=== PATIENT | female | born 2000 | race African-American/Black ===

== ENCOUNTER 2021-03-17 22:36 | Emergency (ER) | payer SELFPAY ==
[2021-03-18] MEDS ORDERED: ACETAMINOPHEN 325 MG TAB PO ONE (01:09)
[2021-03-18 01:10] VITALS: BP 139/89
[2021-03-18 01:45] LABS: Basophils # (Auto) 0.1 K/mm3 (0.0-0.1); Basophils % (Auto) 1.1 % (0.0-1.8); Eosinophils # (Auto) 0.3 K/mm3 (0.0-0.4); Eosinophils % (Auto) 2.4 % (0.0-4.3); Hematocrit 37.4 % (30.3-42.9); Hemoglobin 13.2 gm/dl (10.1-14.3); Lymphocytes # (Auto) 4.3 K/mm3 (1.2-5.4); Lymphocytes % (Auto) 40.4 % (13.4-35.0); Mean Corpuscular HGB Conc 35 % (30-34); Mean Corpuscular Volume 90 fl (79-97); Monocytes # (Auto) 0.5 K/mm3 (0.0-0.8); Monocytes % (Auto) 4.9 % (0.0-7.3); Platelet Count 299 K/mm3 (140-440); Red Blood Count 4.17 M/mm3 (3.65-5.03); Red Cell Distribution Width 12.5 % (13.2-15.2)
[2021-03-18 01:54] LABS: Alanine Aminotransferase 27 units/L (7-56); Albumin 4.8 g/dL (3.9-5); Blood Urea Nitrogen 8 mg/dL (7-17); Calcium 9.4 mg/dL (8.4-10.2); Hemolysis Index 7
[2021-03-18 01:57] LABS: BUN/Creatinine Ratio 16
--- NOTE | 2021-03-18 04:15 | Ultrasound Report ---
PELVIC ULTRASOUND INDICATION: pelvic pain, COMPARISON: None pertinent available TECHNIQUE: Transabdominal and endovaginal FINDINGS: An anteflexed uterus measures 7.8 x 3.9 x 4.8 cm. Endometrial stripe measures 5 mm. I do no t see evidence of intrauterine . No fluid is seen within the endometrial canal. A tiny hyper echoic area adjacent to the endometrial stripe possibly is a minimal calcification. No associated mas s is seen. No other uterine abnormalities are noted. Right ovary measures 3.6 cm in length with a protruding 3.7 cm simple cyst. No increased vascularity is seen in this area. Left ovary is not visualized. No free fluid is seen. IMPRESSION: 1. I cannot confirm intrauterine . Ectopic is not excluded. 2. Moderate right simple ovarian cyst without increased vascularity. Suggest follow-up. Signer Name: Jefferson Jackson MD Signed: 03/18/2021 4:11 AM Workstation Name: [id number]
--- NOTE | 2021-03-18 04:25 | Emergency Department Report ---
ED Female HPI - General Chief complaint: Abdominal Pain Stated complaint: AB PAIN Source: patient Mode of arrival: Ambulatory Limitations: No Limitations - History of Present Illness Initial comments: Patient is a A0 20-year-old female who is approximately 3 weeks gestation and presents to the ED with complaint of acute onset persistent diffuse low abdominal pain worse in the suprapubic area for the last 1 week, worse in the last 2 days. Patient states that she tested positive for urine at home few days ago. Patient denies fever, chills, nausea, vomiting, diarrhea, dysuria, urinary frequency and urgency, low back pain, fever, chills, sore throat or change in vision. MD Complaint: pelvic pain, other (Approximately 3 weeks gestation) -: Sudden, week(s) (1) Location: suprapubic Radiation: non-radiating Severity: moderate Severity scale (0 -10): 4 Quality: cramping Consistency: constant Improves with: none Worsens with: intercourse, movement Are you Now?: Yes (3 weeks gestation) Associated Symptoms: denies other symptoms, abdominal pain (Suprapubic pain). denies: vaginal discharge, vaginal bleeding, nausea/vomiting, fever/chills, headaches, loss of appetite, dysuria, hematuria, seizure, shortness of breath, syncope, weakness - Related Data Sexually active: Yes : 1 Para: 0 A: 0 Previous Rx's Medication Instructions Recorded Last Taken Type Acetaminophen [Tylenol] 500 mg PO Q6HR PRN #30 tablet 03/18/21 Unknown Rx cephALEXin [Keflex] 500 mg PO Q12HR #20 cap 03/18/21 Unknown Rx Allergies Allergy/AdvReac Type Severity Reaction Status Date / Time No Known Allergies Allergy Unverified 03/18/21 01:07 ED Review of Systems ROS: Stated complaint: AB PAIN Other details as noted in HPI Constitutional: denies: chills, fever Eyes: denies: eye pain, eye discharge, vision change ENT: denies: ear pain, throat pain Respiratory: denies: cough, shortness of breath, wheezing Cardiovascular: denies: chest pain, palpitations Endocrine: no symptoms reported Gastrointestinal: abdominal pain (Suprapubic). denies: nausea, vomiting, d iarrhea Genitourinary: denies: urgency, dysuria, discharge Musculoskeletal: denies: back pain, joint swelling, arthralgia Skin: denies: rash, lesions Neurological: denies: headache, weakness, paresthesias Psychiatric: denies: anxiety, depression Hematological/Lymphatic: denies: easy bleeding, easy bruising ED Past Medical Hx - Medications Home Medications: Home Medications Medication Instructions Recorded Confirmed Last Taken Type Acetaminophen [Tylenol] 500 mg PO Q6HR PRN #30 tablet 03/18/21 Unknown Rx cephALEXin [Keflex] 500 mg PO Q12HR #20 cap 03/18/21 Unknown Rx ED Physical Exam - General Limitations: No Limitations General appearance: alert, in no apparent distress - Head Head exam: Present: atraumatic, normocephalic, normal inspection - Eye Eye exam: Present: normal appearance, PERRL, EOMI Pupils: Present: normal accommodation - ENT ENT exam: Present: normal exam, normal orophraynx, mucous membranes moist, TM's normal bilaterally - Neck Neck exam: Present: normal inspection, full ROM - Respiratory Respiratory exam: Present: normal lung sounds bilaterally. Absent: respiratory distress, wheezes, rales, rhonchi, chest wall tenderness, accessory muscle use, decreased breath sounds, prolonged expiratory - Cardiovascular Cardiovascular Exam: Present: regular rate, normal rhythm, normal heart sounds. Absent: systolic murmur, diastolic murmur, rubs, gallop - GI/Abdominal GI/Abdominal exam: Present: soft, tenderness (Palpable mild suprapubic tenderness), normal bowel sounds. Absent: guarding, rebound, hyperactive bowel sounds, hypoactive bowel sounds - Extremities Exam Extremities exam: Present: normal inspection, full ROM, normal capillary refill - Back Exam Back exam: Present: normal inspection, full ROM. Absent: tenderness, CVA tenderness (L), muscle spasm, paraspinal tenderness, vertebral tenderness - Neurological Exam Neurological exam: Present: alert, oriented X3, CN II-XII intact, normal gait, reflexes normal - Psychiatric Psychiatric exam: Present: normal affect, normal mood - Skin Skin exam: Present: warm, dry, intact, normal color. Absent: rash ED Course Vital Signs 03/18/21 01:08 Temperature 99.8 F H Pulse Rate 73 Respiratory 18 Rate Blood Pressure 139/89 O2 Sat by Pulse 100 Oximetry ED Medical Decision Making - Lab Data Result diagrams: 03/18/21 01:19 09/25/21 01:19 - Radiology Data Radiology results: report reviewed, image reviewed [facility] [address] [place] [address] Ultrasound Report Signed Patient: KAMI WEBSTER MR#: [id number] : 2000 Acct:[id number] Age/Sex: 20 / F ADM Date: 03/17/21 Loc: ED Attending Dr: Ordering Physician: AMI GOULD Date of Service: 03/18/21 Procedure(s): US OB transvaginal Accession Number(s): [id number] cc: AMI GOULD PELVIC ULTRASOUND INDICATION: pelvic pain, COMPARISON: None pertinent available TECHNIQUE: Transabdominal and endovaginal FINDINGS: An anteflexed uterus measures 7.8 x 3.9 x 4.8 cm. Endometrial stripe measures 5 mm. I do not see evidence of intrauterine . No fluid is seen within the endometrial canal. A tiny hyperechoic area adjacent to the endometrial stripe possibly is a minimal calcification. No associated mass is seen. No other uterine abnormalities are noted. Right ovary measures 3.6 cm in length with a protruding 3.7 cm simple cyst. No increased vascularity is seen in this area. Left ovary is not visualized. No free fluid is seen. IMPRESSION: 1. I cannot confirm intrauterine . Ectopic is not excluded. 2. Moderate right simple ovarian cyst without increased vascularity. Suggest follow-up. Signer Name: Jefferson Jackson MD Signed: 03/18/2021 4:11 AM Workstation Name: [id number] Transcribed By: GJ Dictated By: Jefferson Jackson MD Electronically Authenticated By: Jefferson Jackson MD Signed Date/Time: 03/18/21410 DD/ TD/TT: [facility] [address] [place] [address] Ultrasound Report Signed Patient: KAMI WEBSTER MR#: [id number] : 2000 Acct:[id number] Age/Sex: 20 / F ADM Date: 03/17/21 Loc: ED Attending Dr: Ordering Physician: AMI GOULD Date of Service: 03/18/21 Procedure(s): US OB transvaginal Accession Number(s): [id number] cc: AMI GOULD PELVIC ULTRASOUND INDICATION: pelvic pain, COMPARISON: None pertinent available TECHNIQUE: Transabdominal and endovaginal FINDINGS: An anteflexed uterus measures 7.8 x 3.9 x 4.8 cm. Endometrial stripe measures 5 mm. I do not see evidence of intrauterine . No fluid is seen within the endometrial canal. A tiny hyperechoic area adjacent to the endometrial stripe possibly is a minimal calcification. No associated mass is seen. No other uterine abnormalities are noted. Right ovary measures 3.6 cm in length with a protruding 3.7 cm simple cyst. No increased vascularity is seen in this area. Left ovary is not visualized. No free fluid is seen. IMPRESSION: 1. I cannot confirm intrauterine . Ectopic is not excluded. 2. Moderate right simple ovarian cyst without increased vascularity. Suggest follow-up. Signer Name: Jefferson Jackson MD Signed: 03/18/2021 4:11 AM Workstation Name: [id number] Transcribed By: GJ Dictated By: Jefferson Jackson MD Electronically Authenticated By: Jefferson Jackson MD Signed Date/Time: 03/18/21410 DD/ 5 TD/TT: - Medical Decision Making This is a A0 20-year-old female who is approximately 3 weeks gestation and presents to the ED with complaint of acute onset persistent diffuse low abdominal pain worse in the suprapubic area for the last 1 week, worse in the last 2 days. Patient states that she tested positive for urine at home few days ago. In the ED, patient is alert and oriented x3 and is not in any distress. Patient is hemodynamically stable. Patient was treated for pain in the ED with Tylenol. Lab test results were reviewed and are all nonactionable but hCG quant was 87.21.. The transvaginal and pelvic ultrasound could not confirm intrauterine . Ectopic is not excluded. It also showed moderate right simple ovarian cyst without increased vascularity. Suggest follow-up. Patient was treated for pain in the ED with Tylenol. Based on the patient's LMP of January 25, 2021, the current quant studies is low suggesting that the may be too early or the patient will be having ectopic . Lab test results are however unremarkable and nonactionable except for urinary tract infection in urinalysis. Patient was given a referral to the [facility] physician on-call Dr. Hernandez for follow-up in 24 to 48 hours. Patient was advised to maintain a complete pelvic rest devoid of any sexual activities, heavy lifting or strenuous physical activity. Patient was advised to contact Dr. Hernandez's office first thing in the morning on Saturday, March 20, 2021 to schedule a follow-up appointment. Patient was advised return to the ED immediately if symptoms get worse. - Differential Diagnosis Ectopic ; ovarian cyst; UTI; constipation; Critical care attestation.: If time is entered above; I have spent that time in minutes in the direct care of this critically ill patient, excluding procedure time. ED Disposition Clinical Impression: Abdominal pain during in first trimester, Acute urinary tract infection Unspecified ectopic without intrauterine Qualifiers: Location of ectopic : unspecified location Qualified Code(s): O00.90 - Unspecified ectopic without intrauterine Disposition: 01 HOME / SELF CARE / HOMELESS Is pt being admited?: No Does the pt Need Aspirin: No Condition: Stable Instructions: Abdominal Pain, Adult, [id number], Ectopic , E asy-to-Read, Abdominal Pain (ED), Urinary Tract Infection, Adult, [id number] Additional Instructions: All lab test results were reviewed and are all nonactionable except for hCG quant which is quite low at 87.21 and urinalysis that showed significant urinary tract infection. The transvaginal and pelvic ultrasound report showed no evidence of a intrauterine but given the fact that your LMP was January 25, 2021, it is possible that the is still too early or if there could also be due to ectopic which we cannot rule out at this time. Your pain may also be due to's the significant urinary tract infection. Therefore maintain a complete pelvic rest with no physical activities, heavy lifting or sexual activities. Take pain medications as needed, which is mainly Tylenol and the antibiotic for urinary tract infection. Follow-up with the [facility] physician Dr. Hernandez as advised in 3 to 5 days for reevaluation. Return to the emergency department immediately if symptoms get worse. Prescriptions: Acetaminophen [Tylenol] 500 mg PO Q6HR PRN #30 tablet PRN Reason: Pain , Severe (7-10) cephALEXin [Keflex] 500 mg PO Q12HR #20 cap Referrals: OLIVE HERNANDEZ MD [Staff Physician] - 3-5 Days Time of Disposition: 04:46 Print Language: BRAZILIAN
[2021-03-18 04:33] LABS: Bilirubin,Urine NEG (Negative); Blood,Urine SM (Negative); Color,Urine Yellow (Yellow); Mucus,Urine 3+ /HPF
== END 2021-03-18 05:00 | disposition home or self-care (01) ==
LOC: ED 22:36
DX: O23.41 Unspecified infection of urinary tract in pregnancy, first trimester (principal); O00.90 Unspecified ectopic pregnancy without intrauterine pregnancy; Z79.899 Other long term (current) drug therapy; Z3A.01 Less than 8 weeks gestation of pregnancy
CPT/HCPCS: 36415; 76801; 76817; 80053; 81001; 84702; 85025; 99284